=== PATIENT | female | born 1990 | race Hispanic/Latino ===

== ENCOUNTER → 2017-04-04 | Day surgery (SDC) | payer OTHER ==
[2017-04-04 10:56] VITALS: BMI 34.9
[2017-04-04 12:08] LABS: Amnisure Test No Membranes Rupture (No Rupture)
--- NOTE | 2017-04-04 13:05 | PRG ---
DATE OF SERVICE: 04/04/2017 PRIMARY JACK TAMP OPERATOR: Dr. Zainab Canales CHIEF COMPLAINT: Abdominal pains. HISTORY OF PRESENT ILLNESS: The patient is a 26-year-old G2, P1 female with an intrauterine pregnan cy at 37 weeks and 3 days who is presenting to Labor and Delivery today after experiencing contracti ons about every 30 minutes and feeling a lot of pressure vaginally. She also reports that she has b een having some leakage of fluid and is unsure if her water has broken. She denies any vaginal blee ding. She denies any recent illness, fever, fall, headache, chest pain, shortness of breath, nausea or vomiting. She has had some diarrhea. Denies any constipation. She denies any new rashes. She denies any hip problems or knee problem. She does report she has some low back pain with this preg freedom. Denies any urinary urgency. PAST MEDICAL HISTORY: Anemia, migraines, history of depression, no longer on any medication and his tory of blood transfusion with her first . PAST SURGICAL HISTORY: She has had her gallbladder removed. SOCIAL HISTORY: Denies drug, alcohol or tobacco use. DENTAL FINANCIAL COORDINATOR HISTORY: She has a history of chlamydia and Trichomonas this year. ALLERGIES: No known drug allergies. MEDICATIONS: vitamins. OB LABS: Blood type is O positive. She is rubella immune. RPR is negative. Hepatitis B surface a ntigen is negative, HIV is negative. In her third trimester. She is GBS negative. REVIEW OF SYSTEMS: Per HPI. PHYSICAL EXAMINATION: VITAL SIGNS: Blood pressure is 113/75, heart rate 71, respiratory rate 18, satting 98% on room air, temperature 98.2. GENERAL: She appears to be in no acute distress. She is alert and oriented, and cooperative and pl easant to interact with. HEENT: Normocephalic, atraumatic. CHEST: Clear to auscultation bilaterally. HEART: Regular rate and rhythm. ABDOMEN: Soft and gravid. EXTREMITIES: Nontender, nonedematous. CERVICAL: She is 1-1/2, 50, -2 station, which is reportedly unchanged from her doctor's visit last . Cervical exam performed by nursing staff. heart tracing performed for threatened labor over the course of 45 minutes. Baseline is in th e 140s with moderate long-term variability, positive accelerations, no decelerations, some irritabi lity is noticed on the monitor without any consistent contraction pattern. AmniSure test was negative. ASSESSMENT AND PLAN: The patient is a 26-year-old G2, P1 female with an intrauterine at 3 7 weeks and 3 days who has false labor. She has been given term precautions. She has an appointmen t to follow up with her primary OB at the end of this week. The patient is GBS negative and fetus h as a reactive NST.
== END ==
LOC: L&D/OP 10:46
PROVIDERS: ATTEND Obstetrics & Gynecology
DX: O47.1 False labor at or after 37 completed weeks of gestation (principal); O99.013 Anemia complicating pregnancy, third trimester; O99.89 Other specified diseases and conditions complicating pregnancy, childbirth and the puerperium; G43.909 Migraine, unspecified, not intractable, without status migrainosus; Z3A.37 37 weeks gestation of pregnancy; Z79.899 Other long term (current) drug therapy; Z90.49 Acquired absence of other specified parts of digestive tract; Z86.19 Personal history of other infectious and parasitic diseases; Z86.59 Personal history of other mental and behavioral disorders
CPT/HCPCS: 84112

== ENCOUNTER 2017-04-07 14:01 | Inpatient (IN) | payer OTHER ==
[2017-04-07] MEDS: Lactated Ringer's 1,000 ML IV SCH ×2 (16:50→23:30)
[2017-04-07] MEDS ORDERED: Promethazine HCl 25 MG/ML VIAL IM PRN (17:26)
[2017-04-07] MEDS ORDERED: Lidocaine 1% (PF) 30 ML VIAL SC PRN (17:26)
[2017-04-07] MEDS ORDERED: Misoprostol 200 MCG TAB PR PRN (17:26)
[2017-04-07] MEDS ORDERED: HYDROcodone/Acetaminophen 5/325 mg Tablet PO PRN (17:26)
[2017-04-07] MEDS ORDERED: Acetaminophen 500 MG TAB PO PRN (17:26)
[2017-04-07] MEDS ORDERED: Diphenoxylate HCl/Atropine Tablet PO PRN (17:26)
[2017-04-07] MEDS ORDERED: Ondansetron HCl/PF 4 MG/2 ML Vial IVP PRN (17:26)
[2017-04-07] MEDS ORDERED: Carboprost 250 MCG/ML AMP IM PRN (17:26)
[2017-04-07] MEDS ORDERED: Ibuprofen 800 MG TAB PO PRN (17:26)
[2017-04-07] MEDS ORDERED: LR / Pitocin 40 units/1000 ml 1,000 ML IV PRN (17:26)
[2017-04-07] MEDS ORDERED: LR 500 ML/Oxytocin 10 units 500 ML IV SCH (17:30)
--- NOTE | 2017-04-07 17:32 | PDOC.LDHP ---
Labor and Delivery H&P Chief complaint: loss of fluid HPI: 26 yo @ 38w1d by 11wk CRL who presents for IOL due to PROM, + amnisure in clinic today. Current gestational age (weeks): 38 Due date: 04/20/17 Dating criteria: first trimester ultrasound Grav: 2 Para: 1 OB History Details: 1 term FAVD for maternal exhaustion, 3rd degree laceration Current complications: none Abnormal US findings: No Past Medical History: Depression, not on meds Current medications: pre- vitamins Previous surgical history: cholecystectomy Allergies/Adverse Reactions: Allergies Allergy/AdvReac Type Severity Reaction Status Date / Time No Known Allergies Allergy Verified 04/04/17 10:57 Social history: none - Physical Exam Vital signs reviewed and normal: yes General: NAD Lungs: nonlabored breathing Abdomen: gravid Extremeties: no edema FHT: category 1 (150s, mod nory, +accels, no decels ) Tsaile contractions every: q5-7 min - Vaginal Exam cm dilated: 2 (vertex per exam in clinic ) Effacement: 50% Station: -3 - OB Labs Blood type: O RH: positive HIV: negative RPR: negative HEPSAg: negative 1 hour GCT: positive 3 hour GTT: negative GBS: negative Urine drug screen: not done Additional Labs: Rubella immune - Assessment 38w1f IUP PROM - Plan Plan: admit to L&D, informed consent obtained, anesthesia consult for pain management (Start pitocin for IOL. )
[2017-04-07 17:43] VITALS: BMI 35.3
[2017-04-07 17:43] LABS: Mean Platelet Volume 7.2 fL (7.4-10.4); Red Blood Cell (RBC) Count 4.02 mill/uL (4.20-5.40)
[2017-04-07] MEDS ORDERED: Fentanyl 4 mcg/Marc 0.1% Cadd 100 ML ONE (23:20)
[2017-04-08] MEDS ORDERED: diphenhydrAMINE HCl 50 MG/ML 1 ML VIAL IVP PRN (00:12)
[2017-04-08] MEDS ORDERED: Acetaminophen 325 MG TAB PO PRN (00:12)
[2017-04-08] MEDS ORDERED: Ondansetron HCl/PF 4 MG/2 ML Vial IVP PRN ×2 (00:12→01:41)
[2017-04-08] MEDS ORDERED: Lactated Ringer's 500 ML IV PRN (00:12)
[2017-04-08] MEDS ORDERED: Promethazine HCl 25 MG/ML VIAL IM PRN ×2 (00:12→01:41)
[2017-04-08] MEDS ORDERED: Naloxone HCl 0.4 mg/ml Vial IVP PRN ×2 (00:12)
[2017-04-08] MEDS ORDERED: ePHEDrine/0.9% NaCl/PF SYRINGE 50 mg/10 ml SLOW IVP PRN (00:12)
[2017-04-08] MEDS ORDERED: Eucerin (Mineral Oil/Petrolatum,White) 30 gm Jar TOP PRN (00:12)
[2017-04-08] MEDS ORDERED: Fentanyl 4mcg/Marcaine 0.1% Cassette 100 ML EPIDURAL SCH (00:15)
[2017-04-08] MEDS ORDERED: Communication Order-Pharmacy FS SCH (00:15)
--- NOTE | 2017-04-08 01:31 | PDOC.OPDEL ---
OB Operative/Delivery Note Delivery Dr/Surgeon: Zainab Canales DO Pre-Delivery Diagnosis: ruptured membrane Procedure/Post Delivery Dx: spontaneous vaginal delivery Weeks gestation: 38 Anesthesia: epidural - Findings A Sex: male - 5 min: 9 (apgars 9/9) - Additional Findings/Plan Placenta delivered: spontaneous Repaired Obstetrical Laceration: 2nd degree (and right labial repaired) Estimated blood loss: 400 cc from lacerations Compilations/Other Findings: delivered in FREDRICK position. No complications with delivery Post delivery plan: routine recovery
[2017-04-08] MEDS ORDERED: traMADol HCl 50 MG TAB PO PRN (01:41)
[2017-04-08] MEDS ORDERED: Benzocaine/Menthol 20-0.5% 60 ML CAN TOP PRN (01:41)
[2017-04-08] MEDS ORDERED: Lanolin Ointment 7 GM TUBE TOP PRN (01:41)
[2017-04-08] MEDS ORDERED: Bisacodyl 10 MG SUPP PR PRN (01:41)
[2017-04-08] MEDS ORDERED: LR / Pitocin 40 units/1000 ml 1,000 ML IV SCH (01:41)
[2017-04-08] MEDS ORDERED: Milk Of Magnesia 30 ML UDCUP PO PRN (01:41)
[2017-04-08] MEDS ORDERED: diphenhydrAMINE HCl 25 MG CAP PO PRN (01:41)
[2017-04-08] MEDS: traMADol HCl 50 MG TAB PO PRN ×3 (04:14→19:22)
[2017-04-08] MEDS: Ibuprofen 800 MG TAB PO SCH ×3 (06:24→21:54)
[2017-04-08] MEDS: Prenatal Vitamin 1 TAB PO SCH (09:10)
[2017-04-08] MEDS: Docusate (Surfak) 240 MG CAP PO SCH ×2 (09:10→21:54)
[2017-04-08] MEDS: Ferrous Sulfate 325 MG TAB PO SCH (09:17)
--- NOTE | 2017-04-08 12:02 | PDOC.PP ---
Post Progress Note Post Day #: 0 -: Doing well. Some perineal pain. Moderate lochia. PO intake tolerated: yes Flatus: yes Ambulation: yes Vital Signs (12 hours) Temp Pulse Resp BP 04/08/17 11:10 98.3 F 73 18 04/08/17 08:51 98.3 F 73 18 121/59 L 04/08/17 07:45 98.4 F 75 18 04/08/17 05:30 98.4 F 75 18 102/60 04/08/17 04:30 73 16 106/68 04/08/17 03:45 98.5 F 73 16 103/59 L Weight Weight 175 lb - Physical Examination General: NAD Cardiovascular: RRR Abdominal: no distention, appropriately TTP Fundus firm & at: below umbilius Extremities: negative homans (B) Skin: no rash Neurological: no gross focal deficits Psychiatric: A&Ox3 Result Diagrams: 04/07/17 16:50 Additional Labs: Post Labs Blood Type O POSITIVE 04/07/17 16:50 Hep Bs Antigen Non-Reactive S/CO (NonReactive) 04/07/17 16:50 (1) 38 weeks gestation of Code(s): Z3A.38 - 38 WEEKS GESTATION OF Status: Resolved (2) Full-term premature rupture of membranes Code(s): O42.92 - FULL-TERM KELBY ROM, UNSP TIME BETW RUPTURE AND ONSET LABOR Status: Resolved (3) Vaginal delivery Code(s): O80 - ENCOUNTER FOR FULL-TERM UNCOMPLICATED DELIVERY Status: Acute - Assessment/Plan Doing well PP. Plan for d/c 1-2 days.
[2017-04-08 12:24] LABS: #Basophils 0.1 thou/uL (0.0-0.2); #Eosinphils 0.1 thou/uL (0.0-0.7); #Lymphocytes 2.7 thou/uL (1.20-3.40); #Monocytes 0.6 thou/uL (0.11-0.59); #Neutrophils 9.4 thou/uL (1.40-6.50); %Basophils 0.4 % (0.0-1.0); %Eosinophils 0.5 % (0.0-10.0); %Lymphocytes 21.2 % (21.0-51.0); %Monocytes 4.9 % (0.0-10.0); Hematocrit 29.6 % (36.0-47.0); Mean Platelet Volume 6.7 fL (7.4-10.4); Red Blood Cell (RBC) Count 3.37 mill/uL (4.20-5.40); White Blood Cell (WBC) Count 12.8 thou/uL (4.8-10.8)
[2017-04-08] MEDS ORDERED: Bupivacaine/Epinephrine 0.25% 30 ML VIAL ONE (18:32)
[2017-04-09] MEDS: traMADol HCl 50 MG TAB PO PRN ×3 (04:18→22:31)
[2017-04-09] MEDS: Ibuprofen 800 MG TAB PO SCH ×3 (06:14→22:00)
[2017-04-09] MEDS ORDERED: Acetaminophen 500 MG TAB PO PRN (07:42)
--- NOTE | 2017-04-09 07:42 | PDOC.PP ---
Post Progress Note Post Day #: 1 -: Complaining of a headache PO intake tolerated: yes Ambulation: yes Vital Signs (12 hours) Temp Pulse Resp 04/09/17 00:15 98.5 F 81 16 Weight Weight 175 lb - Physical Examination General: NAD Abdominal: lochia (normal), no distention, appropriately TTP Fundus firm & at: u-3 Skin: no rash Neurological: no gross focal deficits Psychiatric: A&Ox3 Result Diagrams: 04/08/17 11:57 Additional Labs: Post Labs Blood Type O POSITIVE 04/07/17 16:50 Hep Bs Antigen Non-Reactive S/CO (NonReactive) 04/07/17 16:50 (1) Vaginal delivery Code(s): O80 - ENCOUNTER FOR FULL-TERM UNCOMPLICATED DELIVERY Status: Acute - Assessment/Plan Will give Tylenol for headache. Baby will likely stay per patient, so anticipate d/c tomorrow.
[2017-04-09] MEDS: Ferrous Sulfate 325 MG TAB PO SCH ×2 (07:56→13:10)
[2017-04-09] MEDS: Prenatal Vitamin 1 TAB PO SCH (07:56)
[2017-04-09] MEDS: Docusate (Surfak) 240 MG CAP PO SCH ×2 (07:56→22:00)
[2017-04-10] MEDS: Ibuprofen 800 MG TAB PO SCH (06:05)
[2017-04-10] MEDS: traMADol HCl 50 MG TAB PO PRN (06:06)
[2017-04-10] MEDS: Ferrous Sulfate 325 MG TAB PO SCH (08:04)
[2017-04-10] MEDS: Docusate (Surfak) 240 MG CAP PO SCH (08:12)
[2017-04-10] MEDS: Prenatal Vitamin 1 TAB PO SCH (08:12)
[2017-04-10 09:40] VITALS: BP 112/74; TEMP 98
--- NOTE | 2017-04-10 19:33 | DIS ---
DATE OF ADMISSION: 04/07/2017 DATE OF DISCHARGE: 04/10/2017 ADMITTING DIAGNOSIS: Premature rupture of membranes at 38 weeks. DISCHARGE DIAGNOSIS: Premature rupture of membranes at 38 weeks. PROCEDURE: Term spontaneous vaginal delivery. CONSULTATIONS: None. HOSPITAL COURSE: The patient is a 26-year-old G2, now P2 female who was seen in clinic at 38 weeks and was found to have been ruptured in the clinic and was sent over to Labor and Delivery for induct ion of labor. The patient subsequently had an uncomplicated term spontaneous vaginal delivery with a second-degree laceration. For complete details, please refer to the dictated note. The patient's course has been uncomplicated. Her hemoglobin is 10.0, hematocrit 29.6, plat elets of 335,000. On the day of discharge, the patient reports that she is tolerating p.o., voiding on her own, having decreased lochia and is ambulating, and has decent pain control. PHYSICAL EXAMINATION: VITAL SIGNS: On the day of discharge, blood pressure is 112/74, temperature 98, pulse of 87, respir atory rate of 20. GENERAL: She appears to be in no acute distress. She is alert and oriented, cooperative and pleasa nt to interact with. HEENT: Head is normocephalic, atraumatic. ABDOMEN: Soft, and fundus is firm at the umbilicus. EXTREMITIES: Nontender and nonedematous. The patient is being discharged to home on ibuprofen 600 mg to be taken as needed up to 4 times a da y. She has instructions to follow up with her primary OB, Dr. Canales, in 6 weeks. She has been giv en instructions to follow up sooner if she experiences fever, increasing pain, or bleeding.
== END 2017-04-10 14:10 | disposition home or self-care (01) | DRG 775 ==
LOC: L&D 16:03 → 3SW 04-08 03:44
PROVIDERS: ADMIT Obstetrics & Gynecology; ATTEND Obstetrics & Gynecology
PROC: 3E0P3VZ Introduction of Hormone into Female Reproductive, Percutaneous Approach (ICD-10-PCS; 2017-04-07)
PROC: 10E0XZZ Delivery of Products of Conception, External Approach (ICD-10-PCS; principal; 2017-04-08)
PROC: 0KQM0ZZ Repair Perineum Muscle, Open Approach (ICD-10-PCS; 2017-04-08)
DX: O42.92 Full-term premature rupture of membranes, unspecified as to length of time between rupture and onset of labor (principal); O70.1 Second degree perineal laceration during delivery; Z3A.38 38 weeks gestation of pregnancy; Z37.0 Single live birth
CPT/HCPCS: 36415; 84112; 85025; 85027; 86780; 86850; 86900; 86901; 87340; 87389; J0595; J2001; J2405; J7120

== ENCOUNTER 2018-10-24 11:17 | Emergency (ER) | payer OTHER, SELFPAY ==
[2018-10-24] MEDS ORDERED: Ondansetron ODT 4 MG TAB ONE (11:31)
[2018-10-24 12:01] LABS: #Basophils 0.1 thou/uL (0.0-0.2); #Eosinphils 0.3 thou/uL (0.0-0.7); #Lymphocytes 1.8 thou/uL (1.20-3.40); #Monocytes 0.4 thou/uL (0.11-0.59); #Neutrophils 5.5 thou/uL (1.40-6.50); %Basophils 0.9 % (0.0-1.0); %Eosinophils 3.6 % (0.0-10.0); %Lymphocytes 22.5 % (21.0-51.0); %Monocytes 4.6 % (0.0-10.0); %Neutrophils 68.4 % (42.0-75.0); Hemoglobin 13.7 g/dL (12.0-16.0); Mean Corpuscular HGB CONC 31.1 g/dL (32.0-36.0); Mean Corpuscular Hemoglobin 27.8 pg (27.0-31.0); Mean Corpuscular Volume 89.1 fL (78.0-98.0); Mean Platelet Volume 7.3 fL (7.4-10.4); Platelet Count 442 thou/uL (130-400); RBC Distribution Width 12.2 % (11.5-14.5); Red Blood Cell (RBC) Count 4.93 mill/uL (4.20-5.40); White Blood Cell (WBC) Count 8.1 thou/uL (4.8-10.8)
[2018-10-24 12:02] LABS: Bilirubin Negative (Negative); Blood, Urine Negative (Negative); Clarity CLEAR (Clear); Glucose, Urine (Dipstick) Negative (Negative); Leukocyte Small (Negative); Nitrite Negative (Negative); Protein, Urine (Dipstick) Trace mg/dL (Neg-Trace); Specific Gravity, Urine 1.029 (1.002-1.036); pH, Urine 7.5 (5.0-9.0)
[2018-10-24 12:06] LABS: Pregnancy Test - Urine (BHCG) Negative (Negative); Pregu Control Bar Appear? YES (CONTROL BAR); Specific Gravity 1.029 (1.002-1.036)
[2018-10-24 12:07] LABS: Pregu Control Background? CLEAR/WHITE (CLR/WHITE)
[2018-10-24 12:17] LABS: RBC/HPF None Seen HPF (0-3); Squamous Epithelial None Seen HPF (0-3)
[2018-10-24 12:18] LABS: Bacteria/HPF 1+ HPF (None Seen); Hyaline Casts/LPF NONE SEEN LPF (0-3 Hyaline)
[2018-10-24 12:35] LABS: ALT (SGPT) 19 U/L (8-55); AST (SGOT) 14 U/L (5-34); Albumin 4.3 g/dL (3.5-5.0); Alkaline Phosphatase 86 U/L (40-150); Anion Gap 13 mmol/L (10-20); BUN (Urea Nitrogen) 11 mg/dL (7.0-18.7); Bilirubin, Total 0.8 mg/dL (0.2-1.2); Calc. Creatinine Clearance 0 mL/min (70-130); Calcium 9.6 mg/dL (7.8-10.44); Carbon Dioxide 26 mmol/L (22-29); Chloride 103 mmol/L (98-107); Estimated GFR-MDRD 87; Globulin 3.5 g/dL (2.4-3.5); Glucose 88 mg/dL (70-105); Lipase 17 U/L (8-78); Protein, Total 7.8 g/dL (6.0-8.3); Sodium 138 mmol/L (136-145)
--- NOTE | 2018-10-24 13:39 | ULT ---
US Gallbladder RUQ History: [Epigastric pain] Comparison: None. Findings: Real-time grayscale and color evaluation of the right upper quadrant of the abdomen was per formed. Prior cholecystectomy. Visualized portion of the pancreas aorta and IVC are unremarkable. Hepatic ech otexture is normal. Liver measures 14.5 cm in length. No mass. Portal vein is patent with antegrade flow. The common bile duct measures 2 mm. Right kidney measures 10.3 x 4.6 x 5.4 cm without mass, hydronephrosis, or abnormal calcifications. Impression: Normal examination of the abdomen.
== END 2018-10-24 14:40 | disposition home or self-care (01) ==
LOC: ERS 11:17
DX: K21.9 Gastro-esophageal reflux disease without esophagitis (principal); G43.909 Migraine, unspecified, not intractable, without status migrainosus; F32.9 Major depressive disorder, single episode, unspecified
CPT/HCPCS: 36415; 76705; 80053; 81003; 81015; 81025; 83690; 85025; 87086; 93005; Q0162

== ENCOUNTER 2018-11-30 09:59 | Emergency (ER) | payer SELFPAY ==
[2018-11-30 11:10] LABS: #Basophils 0.1 thou/uL (0.0-0.2); #Eosinphils 0.2 thou/uL (0.0-0.7); #Lymphocytes 1.7 thou/uL (1.20-3.40); #Monocytes 0.4 thou/uL (0.11-0.59); #Neutrophils 8.1 thou/uL (1.40-6.50); %Basophils 0.8 % (0.0-1.0); %Eosinophils 1.5 % (0.0-10.0); %Lymphocytes 16.2 % (21.0-51.0); %Monocytes 4.1 % (0.0-10.0); %Neutrophils 77.3 % (42.0-75.0); Hemoglobin 14.6 g/dL (12.0-16.0); Mean Corpuscular HGB CONC 33.8 g/dL (32.0-36.0); Mean Corpuscular Hemoglobin 30.2 pg (27.0-31.0); Mean Corpuscular Volume 89.5 fL (78.0-98.0); Platelet Count 415 thou/uL (130-400); RBC Distribution Width 12.2 % (11.5-14.5); Red Blood Cell (RBC) Count 4.84 mill/uL (4.20-5.40); White Blood Cell (WBC) Count 10.5 thou/uL (4.8-10.8)
[2018-11-30 11:20] LABS: BHCG - Serum Negative (NEGATIVE); Pregs Control Background? CLEAR/WHITE (CLR/WHITE); Pregs Control Bar Appear? YES (CONTROL BAR)
[2018-11-30 11:36] LABS: ALT (SGPT) 22 U/L (8-55); AST (SGOT) 17 U/L (5-34); Albumin 4.6 g/dL (3.5-5.0); Alkaline Phosphatase 96 U/L (40-150); Anion Gap 14 mmol/L (10-20); BUN (Urea Nitrogen) 11 mg/dL (7.0-18.7); Bilirubin, Total 0.6 mg/dL (0.2-1.2); Calc. Creatinine Clearance 0 mL/min (70-130); Calcium 9.9 mg/dL (7.8-10.44); Carbon Dioxide 24 mmol/L (22-29); Estimated GFR-MDRD Greater than 90; Globulin 3.6 g/dL (2.4-3.5); Glucose 94 mg/dL (70-105); Lipase 23 U/L (8-78); Protein, Total 8.2 g/dL (6.0-8.3)
[2018-11-30 11:48] LABS: Chloride 103 mmol/L (98-107); Potassium 4.2 mmol/L (3.5-5.1); Sodium 137 mmol/L (136-145)
--- NOTE | 2018-11-30 11:50 | CT ---
Contrast-enhanced images of abdomen and pelvis. HISTORY: Abdominal pain. Contrast-enhanced CT images of the abdomen pelvis demonstrate the lung bases to be unremarkable. No evidence of free intraperitoneal air seen. The liver, spleen and pancreas are unremarkable. The gallbladder is been surgically removed. Adrenal glands and kidneys are unremarkable. No dilated loops of small bowel seen. The colon is unremarkable. A normal appendix is visualized. IMPRESSION: normal contrast-enhanced CT images of the abdomen and pelvis.
[2018-11-30] MEDS ORDERED: Famotidine/PF 20 mg/2ml Vial ONE (11:54)
[2018-11-30 12:24] LABS: Bilirubin Negative (Negative); Blood, Urine Negative (Negative); Clarity CLEAR (Clear); Glucose, Urine (Dipstick) Negative (Negative); Leukocyte Negative (Negative); Nitrite Negative (Negative); Protein, Urine (Dipstick) Negative (Neg-Trace); Specific Gravity, Urine 1.026 (1.002-1.036); Urobilinogen 0.2 mg/dL (0.2-1.0); pH, Urine 5.5 (5.0-9.0)
[2018-11-30] MEDS ORDERED: Ondansetron PF 4 MG/2 ML Vial ONE (12:36)
[2018-11-30] MEDS ORDERED: Morphine 4 MG/ML VIAL ONE (12:36)
== END 2018-11-30 13:36 | disposition home or self-care (01) ==
LOC: ERS 09:59
DX: R10.13 Epigastric pain (principal); G43.909 Migraine, unspecified, not intractable, without status migrainosus; F32.9 Major depressive disorder, single episode, unspecified
CPT/HCPCS: 74177; 80053; 81003; 83690; 84703; 85025; 93005; 96374; 96375; J2270; J2405; S0028

== ENCOUNTER 2022-06-17 07:07 | Emergency (ER) | payer SELFPAY ==
[2022-06-17] MEDS ORDERED: Pantoprazole 40 MG VIAL ONE (07:41)
[2022-06-17] MEDS ORDERED: Lidocaine Viscous Sol 2% 15 ml UD Cup ONE (07:41)
[2022-06-17] MEDS ORDERED: Ondansetron PF 4 MG/2 ML Vial ONE (07:41)
[2022-06-17] MEDS ORDERED: Mag-Al 1200 mg/1200 mg/30 ML UDCUP ONE (07:41)
[2022-06-17 07:55] LABS: #Basophils 0.1 thou/uL (0.0-0.2); #Eosinphils 0.3 thou/uL (0.0-0.7); #Lymphocytes 0.8 thou/uL (1.20-3.40); #Monocytes 0.5 thou/uL (0.11-0.59); #Neutrophils 7.2 thou/uL (1.40-6.50); %Basophils 0.6 % (0.0-1.0); %Eosinophils 2.8 % (0.0-10.0); %Lymphocytes 9.5 % (21.0-51.0); %Monocytes 5.9 % (0.0-10.0); %Neutrophils 81.2 % (42.0-75.0); Hemoglobin 14.5 g/dL (12.0-16.0); Mean Corpuscular HGB CONC 34.7 g/dL (32.0-36.0); Mean Corpuscular Hemoglobin 32.5 pg (27.0-31.0); Mean Corpuscular Volume 93.5 fl (78.0-98.0); Mean Platelet Volume 7.1 fL (7.4-10.4); Platelet Count 377 10x3/uL (130-400); RBC Distribution Width 11.8 % (11.5-14.5); Red Blood Cell (RBC) Count 4.47 mill/uL (4.20-5.40); White Blood Cell (WBC) Count 8.9 10x3/uL (4.8-10.8)
[2022-06-17 07:59] LABS: BHCG - Serum Negative (NEGATIVE); Pregs Control Background? CLEAR/WHITE (CLR/WHITE); Pregs Control Bar Appear? YES (CONTROL BAR)
[2022-06-17] MEDS ORDERED: Ibuprofen 800 MG TAB ONE (08:05)
[2022-06-17 08:12] LABS: ALT (SGPT) 24 U/L (8-55); AST (SGOT) 22 U/L (5-34); Albumin 4.2 g/dL (3.5-5.0); Alkaline Phosphatase 74 U/L (40-110); Anion Gap 14 mmol/L (10-20); BUN (Urea Nitrogen) 8 mg/dL (7.0-18.7); Bilirubin, Total 0.8 mg/dL (0.2-1.2); Calc. Creatinine Clearance 0 mL/min (70-130); Calcium 9.2 mg/dL (7.8-10.44); Carbon Dioxide 23 mmol/L (22-29); Chloride 103 mmol/L (98-107); Estimated GFR 118; Globulin 3.3 g/dL (2.4-3.5); Glucose 97 mg/dL (70-105); Lipase 18 U/L (8-78); Potassium 3.7 mmol/L (3.5-5.1); Protein, Total 7.5 g/dL (6.0-8.3); Sodium 136 mmol/L (136-145)
== END 2022-06-17 09:52 | disposition home or self-care (01) ==
LOC: ERS 07:07
DX: K29.70 Gastritis, unspecified, without bleeding (principal); J06.9 Acute upper respiratory infection, unspecified; K21.9 Gastro-esophageal reflux disease without esophagitis
CPT/HCPCS: 36415; 80053; 83690; 84703; 85025; 87804; 96374; 96375; C9113; J2405